=== PATIENT | male | born 1990 | race Caucasian/White ===

== ENCOUNTER 2016-04-12 18:50 | Emergency (ER) | payer OTHER | END 2016-04-12 21:50 | disposition home or self-care (01) | LOC: ER 18:50 | DX: R10.11 Right upper quadrant pain (principal); J20.9 Acute bronchitis, unspecified; R11.2 Nausea with vomiting, unspecified; I10 Essential (primary) hypertension; F41.9 Anxiety disorder, unspecified; F32.9 Major depressive disorder, single episode, unspecified; K21.9 Gastro-esophageal reflux disease without esophagitis; Z90.89 Acquired absence of other organs; G43.909 Migraine, unspecified, not intractable, without status migrainosus | CPT/HCPCS: 36415; 87502; 96361; 96374; 96375 ==